=== PATIENT | male | born 1970 | race Caucasian/White ===

== ENCOUNTER 2017-02-22 15:25 | Emergency (ER) | payer OTHER ==
[2017-02-22 15:33] VITALS: RESP 16
[2017-02-22] MEDS ORDERED: PROPARACAINE 0.5% 15 ML OPHT DROP ONE (16:04)
[2017-02-22] MEDS ORDERED: FLUORESCEIN SODIUM 1 MG STRIP OP ONE (16:04)
--- NOTE | 2017-02-22 16:23 | EDPHY ---
General Narrative: CHIEF COMPLAINT: Right eye discomfort, possible foreign body, water in HISTORY OF PRESENT ILLNESS: Patient complains of possible foreign body in the right eye 7 days ago. 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 He irrigated out quickly. Since then he has had a foreign body sensation with some tearing of the eye. No pain. No difficulty with vision. No fever. No surrounding redness. No headache. He has not yet been evaluated for this. He does not wear glasses or contacts. His tetanus is up-to-date less than 5 years ago. No other associated complaints or modifying factors. REVIEW OF SYSTEMS: Ten systems reviewed and are negative unless otherwise noted in the HPI PCP: None SPECIALISTS: None PAST MEDICAL HISTORY: None PAST SURGICAL HISTORY: None SOCIAL HISTORY: Nonsmoker. No drug or alcohol use. Works as a marco FAMILY HISTORY: Noncontributory EXAMINATION General Appearance: Alert, no distress Head: normocephalic, atraumatic Eyes: Pupils equal and round, no conjunctival pallor or injection. No hyphema. EOMs intact. No periorbital erythema or cellulitis. Visual lee intact by confrontation. Slit-lamp exam: Small floor seen uptake centrally over the cornea. No branching or dendritic lesions. No floaters. ENT, Mouth: Mucous membranes moist Neurological: A&O, nonfocal, normal gait Skin: Warm and dry, no rash. No cellulitis Extremities: Nontender, no pedal edema Psychiatric: Mood and affect normal DIFFERENTIAL DIAGNOSES: Including but not limited to corneal abrasion, conjunctival abrasion, foreign body, corneal ulceration MDM: 4:15 p.m. Possible foreign body into the eye 1 week ago with a small corneal abrasion centrally. No branching or dendritic lesions. No hyphema. No floaters in the anterior chamber. Visual lee are intact by confrontation and no visual complaints. There is no periorbital cellulitis or evidence of orbital cellulitis. Treat with ophthalmic ointment and referral to Ophthalmology for outpatient care. We discussed ED precautions for any worsening symptoms. He is comfortable this plan and discharged in stable condition. SUPERVISION: This patient was independently evaluated without direct involvement of or examination by the attending physician. - History Smoking Status: Never smoked - Objective Vital Signs: Initial Vital Signs Temperature (C) 98.4 F 02/22/17 15:31 Heart Rate 80 02/22/17 15:31 Respiratory Rate 16 02/22/17 15:31 Blood Pressure 144/85 H 02/22/17 15:31 O2 Sat (%) 97 02/22/17 15:31 O2 Delivery Mode Room Air Allergies/Adverse Reactions: No Known Allergies Allergy (Unverified 02/22/17 15:33) Home Medications: Medication Instructions Recorded Erythromycin 0.5% 1 osbaldo OP TID #1 opht.oint 02/22/17 Departure - Departure Disposition: Home, Routine, Self-Care Clinical Impression: Corneal abrasion, right Qualifiers: Encounter type: initial encounter Qualified Code(s): S05.01XA - Injury of conjunctiva and corneal abrasion without foreign body, right eye, initial encounter Condition: Good Instructions: Corneal Abrasion (ED) Additional Instructions: 1. Medication as prescribed to completion 2. Contact the on-call web site manager as read as provided for outpatient follow-up in the next 1-2 days 3. ED precautions as discussed Referrals: Rajan Anderson MD [Medical Doctor] - As per Instructions Sahntel Ross MD [[facility] Primary Care Provider] - As per Instructions Prescriptions: Erythromycin 0.5% 1 osbaldo OP TID #1 opht.oint
[2017-02-22 16:36] VITALS: BP 135/82; PULSE 71; TEMP 98.6; O2SAT 94
== END 2017-02-22 16:41 | disposition home or self-care (01) ==
DX: S05.01XA Injury of conjunctiva and corneal abrasion without foreign body, right eye, initial encounter (principal); X58.XXXA Exposure to other specified factors, initial encounter; Y92.69 Other specified industrial and construction area as the place of occurrence of the external cause; Y99.0 Civilian activity done for income or pay; Y93.89 Activity, other specified